=== PATIENT | female | born 1940 | race Hispanic/Latino ===

== ENCOUNTER → 2019-08-07 | Outpatient (CLI) | payer OTHER ==
[~2019-08-07] VITALS: Ht 163.8 cm; Wt 91.0 kg
[~2019-08-07] MED LIST: AMLO5TAB9 PO; CHOL500050 PO; HYDR12.54 PO; LISI1TAB28 PO; OMEP40CA13 PO
[2019-08-07 11:52] VITALS: BP 137/66
[2019-08-07 11:53] LABS: BASOPHILS % (AUTO) 0.8 % (0.0-5.0); EOSINOPHILS % (AUTO) 2.4 % (0.0-8.0); HEMATOCRIT 41.8 % (36-48); LYMPHOCYTES % (AUTO) 29.3 % (21.0-51.0); MEAN CORPUSCULAR HGB CONC 32.5 g/dL (32.0-36.0); MEAN CORPUSCULAR VOLUME 92.3 fL (79-99); MONOCYTES % (AUTO) 7.1 % (3.0-13.0); NEUTROPHILS % (AUTO) 60.2 % (40.0-77.0); PLATELET COUNT (AUTO) 315 K/uL (130-400); RED BLOOD CELL COUNT(AUTO) 4.53 MIL/uL (4.00-5.50); RED CELL DISTRIBUTION WIDTH 12.4 % (11.0-15.5); WHITE BLOOD COUNT (AUTO) 5.3 K/uL (4.8-10.8)
[2019-08-07 12:02] LABS: CREATININE 0.8 mg/dL (0.5-1.5)
--- NOTE | 2019-08-12 08:50 | NUR ---
CANCELLED CALLED DR MONSON OFFICE AND SPOKE TO JAK Herrera NP. PER JAK PROCEDURES STARTING TOMORROW WILL BE CANCELLED
== END | disposition home or self-care (01) ==
LOC: DAH 10:00 → EDSTATUS 08-12 10:00
PROVIDERS: ATTEND Orthopaedic Surgery
DX: Z01.818 Encounter for other preprocedural examination (principal); M17.12 Unilateral primary osteoarthritis, left knee
CPT/HCPCS: 36415; 80048; 85025

== ENCOUNTER → 2021-08-18 | Outpatient (CLI) | payer OTHER ==
[~2021-08-18] MED LIST changes: +AMLO-257 PO; -AMLO5TAB9 PO; -LISI1TAB28 PO; -OMEP40CA13 PO
== END | disposition home or self-care (01) ==
LOC: SHCH 07:51
PROVIDERS: ATTEND Internal Medicine Cardiovascular Disease
DX: I35.8 Other nonrheumatic aortic valve disorders (principal); I11.9 Hypertensive heart disease without heart failure; E66.9 Obesity, unspecified
CPT/HCPCS: 93306